=== PATIENT | male | born 1965 | race Caucasian/White ===

== ENCOUNTER 2021-01-14 08:43 | Outpatient (CLI) | payer OTHER, SELFPAY ==
--- NOTE | 2021-01-14 08:57 | FL_ITS ---
WS: [id number] UPPER GI WITH AIR TECHNICAL: FLUOROSCOPY TIME: 5.1 minutes CLINICAL INFORMATION: EROSIVE ESOPHAGITIS, DYSPAGIA, CHEST PAIN COMPARISON: None. FINDINGS: Swallowing: Normal. Esophagus: Mild esophageal dysmotility. Reflux esophagitis distal esophagus. Gastroesophageal reflux: Marked reflux to the upper thoracic esophagus in the supine position. Stomach: Gastric rugal thickening consistent with gastritis. Otherwise normal double contrast stomach . Small hiatal hernia. Duodenum: Small diverticulum second portion the duodenum measuring approximately 1.5 cm. Suggestion o f mucosal thickening in the proximal duodenum likely due to duodenitis. Other findings: Numerous well-circumscribed jejunal diverticula. Largest measures up to 2.5 CM. FL/FL upper GI w air* [id number] IMPRESSION: 1. Marked active reflux is visualized to the upper thoracic esophagus in the s upine position. 2. Reflux esophagitis and gastritis. 3. Otherwise normal double contrast stomach. 4. Small esophageal hiatal hernia. 5. Thickened mucosal folds in the proximal duodenum likely due to duodenitis. This can be further evaluated with endoscopy. 6. Small duodenal diverticulum measuring approximately 1.5 CM. 7. Numerous well-circumscribed jejunal diverticuli measuring up to 2.5 cm
== END 2021-01-14 08:44 | disposition home or self-care (01) ==
PROVIDERS: PCP Electrodiagnostic Medicine; Visit Provider Electrodiagnostic Medicine
DX: K22.10 Ulcer of esophagus without bleeding (principal); R13.10 Dysphagia, unspecified; R07.9 Chest pain, unspecified; I10 Essential (primary) hypertension; K57.90 Diverticulosis of intestine, part unspecified, without perforation or abscess without bleeding; K57.10 Diverticulosis of small intestine without perforation or abscess without bleeding; K44.9 Diaphragmatic hernia without obstruction or gangrene; K21.00 Gastro-esophageal reflux disease with esophagitis, without bleeding; K29.70 Gastritis, unspecified, without bleeding; K21.9 Gastro-esophageal reflux disease without esophagitis
CPT/HCPCS: 74246

== ENCOUNTER 2022-01-09 20:00 | Outpatient (CLI) | payer OTHER, SELFPAY | END 2022-01-09 20:01 | disposition home or self-care (01) | LOC: SLEEP 01-10 06:31 | PROVIDERS: PCP Electrodiagnostic Medicine; Visit Provider Nurse Practitioner | DX: G47.33 Obstructive sleep apnea (adult) (pediatric) (principal) | CPT/HCPCS: 95811 ==

== ENCOUNTER 2023-11-25 08:38 | Outpatient (CLI) | payer OTHER, SELFPAY ==
--- NOTE | 2023-11-25 08:43 | US_ITS ---
WS: [id number] RIGHT UPPER QUADRANT ULTRASOUND HISTORY: ABD PAIN/ELEVATED LFTS/ATTN:GALLBLADDER COMPARISON: 08/24/2007 Liver: 13.9 cm in length. Normal size liver and echogenicity. No bile duct dilatation or mass. Portal Vein: Normal hepatopetal flow with monophasic waveform. Gallbladder: Normally distended gallbladder with no stones or wall thickening. CBD: 0.3 cm Pancreas: Poorly visualized. Right kidney: 9.5 cm in length. Normal size kidney. No hydronephrosis. Cortical cyst in the lower sahara e measures 2.6 x 2.6 x 2.3 cm. No solid mass. Aorta and IVC: Unremarkable abdominal aorta and IVC. No ascites. IMPRESSION: 1. Normal gallbladder. 2. No bile duct dilatation. 3. Simple cyst lower pole RIGHT kidney, maximum diameter 2.6 cm.
== END 2023-11-25 08:39 | disposition home or self-care (01) ==
LOC: RAD 08:39
PROVIDERS: PCP Electrodiagnostic Medicine; Visit Provider Nurse Practitioner
DX: R10.9 Unspecified abdominal pain (principal); R74.8 Abnormal levels of other serum enzymes; N20.0 Calculus of kidney
CPT/HCPCS: 76705